=== PATIENT | male | born 1955 | race Caucasian/White ===

== ENCOUNTER 2018-06-07 03:32 | Inpatient (IN) | payer OTHER ==
[~2018-06-07] VITALS: Ht 180.3 cm; Wt 117.9 kg
[2018-06-07] VITALS (12 sets, daily range): BP systolic 106–121; BP diastolic 67–78
[~2018-06-07 03:32] MED LIST: ALEVE220 MG PO; AMLODIPINE BESY10 MG PO; CENTRUM SILVER1 EAC2 PO; HYDROCODON-ACE1 EAC7 PO; HYDROCODONE-APA1 TA1; LISINOPRIL-HCT1 EAC2; LISINOPRIL20 MG PO; OMEPRAZOLE20 M1; OMEPRAZOLE40 MG PO; ONDANSETRON HCL4 M2; TOPROL XL50 MG PO; [UNRECOGNIZED DRUG - OTHER] PO
--- NOTE | 2018-06-07 04:37 | NUR ---
ADMISSION NOTE: PT COMES IN TONIGHT COMPLAINING OF SHORTNESS OF AIR AND CHEST PAIN AT HOME. STATED THAT HE HAD BEEN THINKING HE WAS HAVING INDIGESTION AND NOW RELIZES THAT IT COULD BE HIS HEART. HE IS COOPERATIVE AND CALM AND ALERT AND ORIENTED X4. NO SKIN BREAKDOWN NOTED BY THIS RN. CARE PLAN INITIATED. DENIES CHEST PAIN OR ANY OTHER DISCOMFORT. HE IS ON 2 LITERS OF OXYGEN , AND HAS AN ELEVATED HEART AT TIMNE OF ADMISSION IN THE 140- 160'S. CARDIZEM GTT STARTED AT 0413. TITRATED ORDERED. HE IS COMFORTABLE AND AWAITING THE FUSE ASSEMBLER TO SEE HIM.
[2018-06-07] MEDS ORDERED: ASPIRIN325 PO (05:22)
[2018-06-07] MEDS ORDERED: GLUCOTROL5 MG PO (05:22)
[2018-06-07 07:51] LABS: CHOLESTEROL 184 mg/dL (<200); HDL CHOLESTEROL 29 mg/dL (>40); LDL CHOLESTEROL 119 mg/dL (<100); TC:HDL 6.3 Ratio (Not establshd); TRIGLYCERIDE 181 mg/dL (<150); VLDL 36 mg/dL (<40)
--- NOTE | 2018-06-07 09:44 | NUR ---
care of pt assumed this am @ 0700. pt resting quietly and comfortably in bed, pt denies cp, no n/v and no soa thus far today. pt on o2 @ 2lt nc for comfort as pt states he is a mouth breather when he sleeps. pt w/ a good appetite for food and fluid this am. pt voiding per urinal in bthrm w/ sba to ambulate. pt w/ a steady, balanced and coordinated gait. pt on a diltiazem gtt at this time @ 20mg/hr. medical records requested from [facility] per dr. chapa. pt w/ pending cardiac cath this am.
--- NOTE | 2018-06-07 12:13 | 2DMMODE ---
[facility] [address] [place] [address] 2 D/M-MODE ECHOCARDIOGRAM Name: SEGUNDO KWONG Room #: 356-P [facility] IN ..#: [id number] ������������� Admission: 06/07/18 ������������� Attend Phys: Jersey Jeong MD Discharge: ��� ������������� ��� Date of : 53 Date of Service: 06/07/18 1213 �� Report #: [id number] �������� ��������������������������������������������[id number] THIS REPORT FOR: //name// APPROVED REPORT Study performed: 06/07/2018 10:13:37 EXAM: Comprehensive 2D, Doppler, and color-flow Echocardiogram Patient Location: In-Patient Room #: 356 Status: stat BSA: 2.33 HR: 89 bpm BP: 113/74 mmHg Rhythm: Atrial Fibrillation Other Information Study Quality: Technically Limited Indications Aortic Valve Disease Diabetes Dyspnea Syncope Chest Pain Hypertension/HDD 2D Dimensions LVOT Diam: 18.91 (18-24mm) Aortic Valve AoV Peak Fernando.: 3.55 m/s AO Peak Gr.: 50.55 mmHg LVOT Max P.11 mmHg AO Mean Gr.: 31.43 mmHg LVOT Mean P.85 mmHg AO V2 Mean: 2.59 m/s LVOT Max V: 1.23 m/s AO V2 VTI: 69.21 cm LVOT Mean V: 0.92 m/s CHELSEA (VTI): 1.12 cm2 LVOT V1 VTI: 27.70 cm CHELSEA Vmax: 0.97 cm2 SV (LVOT): 77.72 mL Left Ventricle The left ventricle is normal size. There is normal LV segmental wall motion. Mild to moderate concentric left ventricular hypertrophy. Left ventricular systolic function is hyperdynamic. LVEF is >70%. [facility] [address] [place] [address] 2 D/M-MODE ECHOCARDIOGRAM Name: SEGUNDO KWONG Room #: 356- ADM IN .R.#: [id number] ������������� Admission: 06/07/18 ������������� Attend Phys: Jersey Jeong MD Discharge: ��� ������������� ��� Date of : 53 Date of Service: 06/07/18 1213 �� Report #: [id number] �������� ��������������������������������������������[id number] Right Ventricle The right ventricle is normal size. The right ventricular systolic function is normal. Atria The left atrium size is normal. The right atrium size is normal. Aortic Valve Aortic valve is calcified, probably bicuspid. No aortic regurgitation is present. Moderate to moderately severe aortic stenosis (maximum pressure gradient of 49 mmHg and mean pressure gradient of 30 mmHg). CHELSEA 1.0cm2 Mitral Valve The mitral valve is normal in structure. Tricuspid Valve The tricuspid valve is normal in structure. Pulmonic Valve Pulmonic valve is not well visualized. Great Vessels The aortic root is normal in size. Pericardium There is no pericardial effusion. <Conclusion> Abbreviated echocardiogram Left ventricular systolic function is hyperdynamic. Mild to moderate concentric left ventricular hypertrophy. LVEF is >70%. Aortic valve is calcified, probably bicuspid. Moderate to moderately severe aortic stenosis (maximum pressure gradient of 49 mmHg and mean pressure gradient of 30 mmHg). CHELSEA 1.0cm2 The mitral valve is normal in structure. There is no pericardial effusion. ��������������������������������������������� <ELECTRONICALLY SIGNED> ���������������������������������������� By: Beltran Rolon MD, FACC ��������������������������������������������� 06/07/18 121 12 12 Beltran Rolon MD, FACC /INF
--- NOTE | 2018-06-07 12:46 | NUR ---
Spoke with Dr. Rolon re: cardizem PO and cardizem drip. Stated he wants the PO cardizm given, one time order. Titrate Cardizem drip off to keep HR less than 100. Report called to CCU RN.
--- NOTE | 2018-06-07 13:08 | CATHLAB ---
[facility] [address] [facility] [address] [place] [address] INVASIVE PROCEDURE REPORT Name: SEGUNDO KWONG Room #: 356-P [facility] IN [facility].#: [id number] ������������� Admission: 06/07/18 ������������� Attend Phys: Jersey Jeong MD Discharge: ��� ������������� ��� Date of : 53 Date of Service: 06/07/18 1308 �� Report #: [id number] �������� ��������������������������������������������[id number] THIS REPORT FOR: //name// APPROVED REPORT Study performed: 06/07/2018 09:44:07 Patient Details Patient Status: In-Patient Room #: Indication Abnormal ECG, Non-STEMI , Atrial fibrillation Risk Factors Arterial HypertensionDysplipidemia , Hypertension, Diabetes Procedure Narrative The patient was brought electively to the Cardiac Catheterization Laboratory and was prepped and draped in a sterile manner. The Right Groin^ was infiltrated with 1% Lidocaine subcutaneous anesthesia. A 6Fr Independence sheath sheath was inserted into the RFA^. Coronary angiography was performed using coronary diagnostic catheters. The right coronary system was accessed and visualized with a JR4 catheter. The left coronary system was accessed and visualized with a JL5 catheter. An aortogram of the ascending aorta was performed. Closure device was deployed with a 6 Fr MYNXGRIP 6/7F #[id number]. The patient tolerated the procedure well and there were no complications associated with the procedure. There was no hematoma. Intraoperative Conscious Sedation Sedation start time: 10:28 Case end Time: 11:16 Fentanyl 50 mcg Versed 1.5 mg Fluoro Time: 5.83 minutes Dose: DAP 60174.6 cGycm2 1394.2 mGy Contrast Type and Amount: Omnipaque 230 ml Coronary Angiography The patient's coronary anatomy is right dominant. Diagnostic Cath Left Main Short, normal left main LAD 30-40% mid LAD stenosis just after the first diagonal branch. Not flow-limiting by FFR 0.94 [facility] [address] [place] [address] [place] [address] INVASIVE PROCEDURE REPORT Name: SEGUNDO KWONG MOSELLE Room #: 356-P ADM IN M.R.#: [id number] ������������� Admission: 06/07/18 ������������� Attend Phys: Jersey Jeong MD Discharge: ��� ������������� ��� Date of : 53 Date of Service: 06/07/18 1308 �� Report #: [id number] �������� ��������������������������������������������[id number] Diagonal 1 Large first diagonal branch with minimal proximal plaquing Circumflex Circumflex was large and comprised of a large single marginal branch, angiographically normal Right Coronary Very large, dominant right coronary with mild 10-20% proximal mid and distal vessel plaquing R PDA Large posterior descending branch 20-30% proximal plaquing RPLV Moderately large posterior lateral branch, mild plaquing Left Ventriculography Left Ventriculography was not performed. Supravalvular aortography demonstrated a calcified and possibly bicuspid aortic valve. Mild aortic insufficiency. The proximal aorta. Normal in caliber. No dissection. Hemodynamics The aortic pressure is 106/73 mmHg with a mean of 88 mmHg. PCI Technique Lesion Percutaneous coronary intervention was performed on the mid left anterior descending artery segment. The lesion stenosis prior to intervention was 40% with STEVEN 3 flow. A LAUNCHER 6FR JL5 #[id number] Guide Catheter was used to engage the ostium. A Aeris Pressure Wire 175 cm [id number] Interventional Guidewire was used to cross the lesion. COMMENTS Aeris pressure wire was introduced across proximal left anterior descending artery. Pre FFR=.94 Post FFR without adenosine=.94 Conclusion 1. Calcific aortic stenosis, possibly bicuspid valve. Mildly insufficient 2. Normal left main 3. 30-40% mid LAD stenosis not flow-limiting by FFR (0.94) 4. Large, nondominant circumflex, angiographically normal 5. Dominant right coronary, mild scattered plaquing [facility] [address] [place] [address] INVASIVE PROCEDURE REPORT Name: SEGUNDO KWONG Room #: 356-P [facility] IN [facility]#: [id number] ������������� Admission: 06/07/18 ������������� Attend Phys: Jersey Jeong MD Discharge: ��� ������������� ��� Date of : 53 Date of Service: 06/07/18 1308 �� Report #: [id number] �������� ��������������������������������������������[id number] Recommendations [facility] ��������������������������������������������� <ELECTRONICALLY SIGNED> ���������������������������������������� By: Beltran Rolon MD, [facility] ��������������������������������������������� 06/07/18 1308 07 130 Beltran Rolon MD, FACC /INF
--- NOTE | 2018-06-07 17:16 | EKG ---
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: CHANNING : 1955 Requested By: Magui Whaley Order Number: [id number] MD: Beltran Rolon Measurements Intervals [place] Rate: 99 P: SC: QRS: 60 QRSD: 140 T: 200 QT: 371 QTc: 477 Interpretive Statements Atrial fibrillation Right bundle branch block Abnormal T, consider ischemia, lateral leads Baseline wander in lead(s) V5,V6 Compared to ECG 04/17/2015 07:06:32 Atrial fibrillation has replaced sinus rhythm Electronically Signed On 06-07-2018 17:16:52 CDT by Beltran Rolon [email or web address] ��������������������������������������������� <ELECTRONICALLY SIGNED> ���������������������������������������� By: Beltran Rolon MD, FACC ��������������������������������������������� 06/07/18 1716 0936 0936 Beltran Rolon MD, [facility] /EPI
--- NOTE | 2018-06-07 17:20 | NUR ---
PT ARRIVED TO UNIT AT APPROX 1330 FROM SWATCH FOLDER BY SWATCH FOLDER STAFF ACCOMPANIED BY FRIEND. PT ALERT AND ORIENTED, NO C/O PAIN, DENIES CHEST PAIN. VSS. RT GROIN SITE CDI, NO HEMATOMA. FLUIDS STARTED, DILT GTT CONTINUES. TELE PUT ON, ADMIT STRIP PRINTED AND DOCUMENTED. PT DENIES CONCERNS AT THIS TIME. WILL CONTINUE TO MONITOR AND FOLLOW POC.
--- NOTE | 2018-06-07 17:40 | NUR ---
PT CONTINUES TO BE ALERT AND ORIENTED, DILT GTT TITRATING DOWN. PT SR ON MONITOR. PT CONTINUES TO DENY PAIN, NO CHEST PAIN. NO S/SX OF CARDIAC OR RESP DISTRESS NOTED. RT GROIN SITE CONTINUES TO BE CDI, NO HEMATOMA. POST CATH VITALS FLOW SHEET IN CHART. DENIES CONCERNS AT THIS TIME. WILL CONTINUE TO MONITOR AND FOLLOW POC.
--- NOTE | 2018-06-07 17:49 | NUR ---
INITIAL ASSESSMENT: SW reviewed chart and spoke with attending physician. Pt was transferred to [facility] from [facility] due to afib with RVR. Pt had cardiac cath earlier today and transferred to CCU from . SW met with pt and family at bedside. introduced role of SW. Pt is alert/orientated x 4. Pt reports he lives at home with his son. Prior to admission, pt was independent with ADLs. No use of DME. No hx of HH services or SNF/Rehab placement. Pt denies having any discharge needs. Anticipate discharge home tomorrow. Pt's family will provide transportation home. SW is following to assist should needs arise.
[2018-06-08 01:19] VITALS: BP 116/73
[2018-06-08 03:32] VITALS: BP 148/92
[2018-06-08 03:54] LABS: CREATININE 0.8 mg/dL (0.7-1.3); POTASSIUM 3.9 mmol/L (3.5-5.1)
[2018-06-08 04:40] LABS: HEMATOCRIT 43.2 % (42.0-52.0); HEMOGLOBIN 14.8 gm/dL (14.0-18.0); MCH 31.6 pg (26.0-34.0); MCHC 34.3 g/dL (28.0-37.0); RBC 4.69 mil/uL (4.50-6.00); RDW 14.6 % (10.5-14.5); WBC 5.3 thou/uL (4.0-11.0)
[2018-06-08 05:58] VITALS: BP 148/92
--- NOTE | 2018-06-08 07:27 | NUR ---
ASSESSMENT DOCUMENTED.PT RESTING IN NO ACUTE DISTRESS.A/OX4.VSS.S/P CARDIAC CORY W/O INTERVENTIONS.RIGHT GROIN W/O HEMATOMA,DRSNG CDI.PT TO POSSIBLY DISCHARGE TODAY TO HOME.WILL CONT TO MONITOR PER POC.
[2018-06-08] MEDS ORDERED: ELIQUIS5 MG PO (07:59)
[2018-06-08] MEDS ORDERED: CARDIZEM CD120 MG PO (07:59)
[2018-06-08] MEDS ORDERED: ATORVASTATIN CA40 MG PO (07:59)
[2018-06-08 08:18] VITALS: BP 136/86
[2018-06-08 10:16] VITALS: BP 136/86
--- NOTE | 2018-06-08 12:16 | NUR ---
DISCHARGE NOTE: SW reviewed chart and spoke with nursing and attending physician. Pt is medically stable for discharge home today. No SW discharge needs identified at this time. Pt's family to provide transportation home. No additional SW needs identified at this time, but is available to assist should needs arise.
--- NOTE | 2018-06-08 17:59 | EKG ---
[place] [address] [facility] [employer] [place] [address] ELECTROCARDIOGRAM REPORT Name: SEGUNDO KWONG Room #: 210-P [facility] IN M.R.#: [id number] ������������������ Admission: 06/07/18 ������������������ Attend Phys: Jersey Jeong MD Discharge: 06/08/18 ������������������ Date of : 53 Report #: [id number] ����������������������������������������������������������������� [id number] THIS REPORT FOR: //name// [facility] Test Date: 2018-06-08 Test Time: 07:10:57 Pat Name: SEGUNDO KWONG Department: Room: 210 P Gender: M Physical Therapy Aide: CHANNING : 1955 Requested By: Beltran Rolon Order Number: [id number] MD: Beltran Rolon Measurements Intervals [place] Rate: 73 P: 6 MD: 144 QRS: 51 QRSD: 141 T: 192 QT: 433 QTc: 478 Interpretive Statements Sinus rhythm Right bundle branch block Abnrm T, consider ischemia, anterolateral lds Baseline wander in lead(s) V5 Compared to ECG 06/07/2018 09:36:21 Atrial fibrillation no longer present Electronically Signed On 06-08-2018 17:59:20 CDT by Beltran Rolon [email or web address] ��������������������������������������������� <ELECTRONICALLY SIGNED> ���������������������������������������� By: Beltran Rolon MD, [facility] ��������������������������������������������� 06/08/18 1759 0710 0710 Beltran Rolon MD, [facility] /EPI
== END 2018-06-08 11:15 | disposition home or self-care (01) | DRG 251 ==
LOC: 3W 03:32 → 2N 13:25 → ENTRNSPT 06-08 10:42 → EDTRNSPTSTS 06-08 10:44 → 2N 06-08 11:15
PROVIDERS: Nurse Practitioner Acute Care; ADMIT Hospitalist
PROC: 4A023N7 Measurement of Cardiac Sampling and Pressure, Left Heart, Percutaneous Approach (ICD-10-PCS; principal; 2018-06-07)
PROC: B2111ZZ Fluoroscopy of Multiple Coronary Arteries using Low Osmolar Contrast (ICD-10-PCS; principal; 2018-06-07)
PROC: B4101ZZ Fluoroscopy of Abdominal Aorta using Low Osmolar Contrast (ICD-10-PCS; principal; 2018-06-07)
PROC: 02703ZZ Dilation of Coronary Artery, One Artery, Percutaneous Approach (ICD-10-PCS; 2018-06-07)
DX: I21.A1 Myocardial infarction type 2 (principal); D68.59 Other primary thrombophilia; I48.0 Paroxysmal atrial fibrillation; K08.409 Partial loss of teeth, unspecified cause, unspecified class; I10 Essential (primary) hypertension; K21.9 Gastro-esophageal reflux disease without esophagitis; I65.22 Occlusion and stenosis of left carotid artery; I71.4 Abdominal aortic aneurysm, without rupture; K58.9 Irritable bowel syndrome, unspecified; I35.1 Nonrheumatic aortic (valve) insufficiency; Z88.8 Allergy status to other drugs, medicaments and biological substances; Z90.49 Acquired absence of other specified parts of digestive tract; Z87.891 Personal history of nicotine dependence; Z87.442 Personal history of urinary calculi; Z79.82 Long term (current) use of aspirin; Z79.899 Other long term (current) drug therapy; Z98.49 Cataract extraction status, unspecified eye; Z82.49 Family history of ischemic heart disease and other diseases of the circulatory system; Z82.3 Family history of stroke; Z28.89 Immunization not carried out for other reason
CPT/HCPCS: 10081

== ENCOUNTER 2018-07-19 20:01 | Inpatient (IN) | payer OTHER ==
[~2018-07-19] VITALS: Ht 180.3 cm; Wt 117.5 kg
--- NOTE | ~2018-07-19 | HC ---
[facility] [address] CONSULTATION Name: SEGUNDO KWONG Room #: 354-P ADM IN M.R.#: [id number] Admission: 07/19/18 ������������������ Attend Phys: Lamont Mcarthur Discharge: ������������������ Date of : 53 Report #: [id number] THIS REPORT FOR: //name// CC: FAM unknown Lamont Mcarthur DATE OF SERVICE: 07/20/2018 HISTORY OF PRESENT ILLNESS: This is a 63-year-old male patient who was evaluated by me for an episode of left-sided weakness and numbness. It was a transient episode which came spontaneously and then resolved spontaneously. There was some question of a generalized headache in this patient. He indicates that he had a carotid Doppler in the local hospitals and that carotid Doppler initially showed 60% stenosis, then it showed a complete occlusion. Then, he had an MRA and he has had that demonstrated a complete occlusion. He said it was fair, but I do not find any record here of the MRI. He was admitted here in earlier and that was for atrial fibrillation. He is on anticoagulation for that. REVIEW OF SYSTEMS: Indicate history of occlusion of right carotid. Some of the records indicate that it is left carotid, which is occluded. We need to confirm that, we need to get those records and I will talk to Dr. Mcarthur. He does have a history of atrial fibrillation. He does have hypertension. His blood pressure fluctuates. He does not have a blood pressure cuff at home. He had a myocardial problems in the past and he has a bicuspid aortic valve. He had a prior history of hypertension, kidney stones, tumor of the left eye. Otherwise, he is pretty healthy. His 14-point review of systems was relevant for the above thing. PAST MEDICAL HISTORY: Positive for right carotid stenosis, but I need to confirm that it was occluded and it was on the right side. FAMILY HISTORY: Negative for any early age stroke. SOCIAL HISTORY: He has a son who was here and he provided part of the history. PHYSICAL EXAMINATION: Indicate he is alert, responsive, able to follow simple and complex command. His speech, concentration, fund of knowledge and memory is at his baseline. Cranial nerve examination 2-12 is mostly noncontributory. Strength, sensation, reflexes and tone is symmetrical. There is some murmur in the heart. No respiratory difficulty was noticed. His blood pressure is 115/64, temperature is 97.4. LABORATORY DATA: His WBC count is 5.3. GFR is 75. IMPRESSION: We need to clarify his situation and confirm that he has a right [facility] [address] [place] [address] CONSULTATION Name: SEGUNDO KWONG Room #: 354-P [facility] IN M.R.#: [id number] Admission: 07/19/18 ������������������ Attend Phys: Lamont Mcarthur Discharge: ������������������ Date of : 53 Report #: [id number] carotid stenosis and the vessel is fully occluded. If that is the case, then a surgical intervention cannot be done and the emphasis should be to make sure he does not have any hypotension, which caused the collapse of the collateral. I would like to do an MRI to make sure he did not have any stroke because of cross embolization. If the right carotid is occluded and we need to see what the situation is on the left carotid. I cannot find any imaging study. I will call Dr. Mcarthur to get some more information to see where we can find the studies and await evaluation by Dr. Callahan. I discussed all of it with the patient in detail and review of his record. Time spent 50 minutes and majority of that counseling the patient and coordinating his care. ��������������������������������������������� ���������������������������������������� By: ��������������������������������������������� 1040 0210 Chris Louis MD /nt
[~2018-07-19 20:01] MED LIST changes: +ASPIRIN325 PO; +ATORVASTATIN CA40 MG PO; +CARDIZEM CD120 MG PO; +ELIQUIS5 MG PO; +GLUCOTROL5 MG PO
[2018-07-19 20:55] VITALS: BP 125/83
[2018-07-19] MEDS ORDERED: SORINE 80 MG TA80 M1 PO (21:18)
[2018-07-19] MEDS ORDERED: VIAGRA50 MG PO (21:22)
[2018-07-20 00:23] VITALS: BP 116/72
[2018-07-20 03:45] VITALS: BP 131/85
[2018-07-20 05:29] LABS: HEMATOCRIT 45.6 % (42.0-52.0); HEMOGLOBIN 15.6 gm/dL (14.0-18.0); MCH 31.2 pg (26.0-34.0); MCHC 34.1 g/dL (28.0-37.0); MCV 91.3 fL (80.0-100.0); RBC 4.99 mil/uL (4.50-6.00); RDW 14.2 % (10.5-14.5); WBC 5.3 thou/uL (4.0-11.0)
[2018-07-20 05:42] LABS: MAGNESIUM 1.9 mg/dL (1.8-2.4); POTASSIUM 3.6 mmol/L (3.5-5.1)
[2018-07-20 07:47] VITALS: BP 115/65
[2018-07-20 11:28] VITALS: BP 126/91
[2018-07-20 15:28] VITALS: BP 116/76
[2018-07-20 19:31] VITALS: BP 120/71
[2018-07-21 04:13] VITALS: BP 113/52
[2018-07-21 07:39] VITALS: BP 125/89
[2018-07-21 11:37] VITALS: BP 133/81
[2018-07-21 15:57] VITALS: BP 144/89
[2018-07-21 19:30] VITALS: BP 132/82
[2018-07-22 04:05] VITALS: BP 149/81
[2018-07-22 07:22] VITALS: BP 140/97
[2018-07-22 08:00] VITALS: BP 140/97
--- NOTE | 2018-07-22 08:37 | EEG ---
[facility] [place] [address] ELECTROENCEPHALOGRAM Name: SEGUNDO KWONG Room #: 354-P [facility] IN M.R.#: [id number] ������������������ Admission: 07/19/18 ������������������ Attend Phys: Lamont Forte Discharge: ������������������ Date of : 53 Report #: [id number] ����������������������������������������������������������������� [id number] THIS REPORT FOR: //name// CC: FAM unknown Lamont Mcarthur DATE OF SERVICE: 07/21/2018 HISTORY: The patient is a 63-year-old male who had an episode of left-sided weakness, numbness, tingling and cramping of the left hand. An EEG is requested for further evaluation. DESCRIPTION: The awake record consists of symmetric moderate amplitude 7.5-8 cycles per second posterior dominant rhythm, which attenuates with eye opening. Stage 1 sleep was characterized by attenuation of the background record. Photic stimulation was not activating. No focal abnormalities or epileptiform discharges were noted. IMPRESSION: This is a normal adult awake to stage 1 sleep record. No focal abnormalities or epileptiform discharges were noted. ���������������������������������������� <ELECTRONICALLY SIGNED> ���������������������������������������� By: Bina Hines DO ��������������������������������������������� 07/22/18 0837 1718 1948 Bina Hines DO /nt
[2018-07-22 09:20] VITALS: BP 140/97
[2018-07-22 09:28] VITALS: BP 140/97
--- NOTE | 2018-07-23 12:06 | HC ---
[facility] [place] [address] CONSULTATION Name: SEGUNDO KWONG Room #: 354-P [facility] IN M.R.#: [id number] Admission: 07/19/18 ������������������ Attend Phys: Lamont Mcarthur Discharge: 07/22/18 ������������������ Date of : 53 Report #: [id number] THIS REPORT FOR: //name// CC: FAM unknown Lamont Mcarthur DATE OF SERVICE: 07/20/2018 We were asked to see the patient in consultation. HISTORY OF PRESENT ILLNESS: The patient is a 63-year-old admitted and transferred to this facility from [facility]. The patient describes a transient ischemic attack characterized by 5 minutes or so of left arm and left leg weakness and numbness. We note that the patient had an MR angiogram of the neck that shows a 100% occlusion of the right internal carotid. In discussion with the patient, he states that this is not a new finding. Rather, it was discovered that he had a right carotid total occlusion in March. Previously, Carotid duplexes have demonstrated bilateral 60% stenoses. We note that the patient was inpatient at this facility approximately 40 days ago. At that time, the patient had cardiac catheterization and cardiac echo. The patient was found to have inpk-dn-hpqyuxey aortic stenosis with a bicuspid valve and mild coronary artery disease that was appropriate for medical management. The patient has a history of paroxysmal atrial fibrillation and has been taking Eliquis for the last 40 days. It appears that the admission to this facility 40 days ago was prompted by a heart rate of 180 and underlying arrhythmia. OTHER PAST MEDICAL HISTORY: Includes hypertension, hyperlipidemia, diabetes mellitus. ALLERGIES: THE PATIENT CLAIMS TO BE ALLERGIC TO METFORMIN AND SERTRALINE. MEDICATIONS: At home include omeprazole, glipizide, aspirin, sotalol, sildenafil, lisinopril. PAST SURGICAL HISTORY: Includes orthopedic surgery to knees, skin graft to leg, appendectomy, tonsillectomy. FAMILY HISTORY: Significant for heart disease, cancer, and stroke. TOBACCO USE: Former smoker, claims to have approximately 85-ndzg-gqmc history, but had quit at least 15 years ago. [facility] [address] [place] [address] CONSULTATION Name: SEGUNDO KWONG REI Room #: 354-P [facility] IN M.R.#: [id number] Admission: 07/19/18 ������������������ Attend Phys: Lamont Mcarthur Discharge: 07/22/18 ������������������ Date of : 53 Report #: [id number] SOCIAL HISTORY: The patient is . He is retired from working with [employer], [place], claims to be in good health, otherwise. REVIEW OF SYSTEMS: CONSTITUTIONAL: No major weight changes, no fevers. HEENT: No headache, no vision problems. No new hearing problems. RESPIRATORY: Denies new shortness of breath. CARDIAC: Denies chest pain. As noted, history of palpitations with fast heart rate approximately one month ago. GASTROINTESTINAL: No nausea, vomiting blood. GENITOURINARY: No urgency, frequency blood. MUSCULOSKELETAL: No important arthritic problems currently. NEUROLOGIC: As mentioned in HPI, transient numbness in left side and weakness, left side. No lasting neurologic deficit. PSYCHIATRIC: No depression, no anxiety. ENDOCRINE: No tremor. No goiter. PHYSICAL EXAMINATION: VITAL SIGNS: Temperature 36.9, heart rate 72, respiratory rate 16, blood pressure 116/76, O2 sat 95 on room air. HEENT: No scleral icterus, no arcus. Pupils are round, equal. Gaze conjugate. No obvious oropharyngeal problems. NECK: No mass, no bruit. CHEST: Clear to auscultation. The patient has increased AP diameter to chest. CARDIAC: Regular rhythm with grade 2 systolic murmur in the aortic area. ABDOMEN: Protuberant, soft, no mass, no tenderness. EXTREMITIES: No clubbing, cyanosis or edema. VASCULAR: No obvious lower extremity varicosities, 1+ distal pulses bilaterally, 2+ popliteal pulses bilaterally. PSYCHIATRIC: Shows insight into problem and answers questions appropriately and this is a pleasant fellow. ASSESSMENT AND PLAN: The patient has history of mild coronary artery disease, xude-cm-ugpyjhta aortic stenosis and a known occluded right internal carotid. The patient has a transient ischemic attack that appears to be related to the right brain. It is not clear how this happened with the total occlusion, but there is no indication for carotid surgery for total occlusion. It might be nice to better evaluate the left side as the current MRA describes motion artifact, perhaps a repeat duplex would be a good place to start. As far as the cardiologic picture, this does not appear to be a symptom related to his coronary artery disease or his valve, but I will defer to Cardiology on that. [address] [address] CONSULTATION Name: SEGUNDO KWONG Room #: 354-P [facility] IN M.R.#: [id number] Admission: 07/19/18 ������������������ Attend Phys: Lamont Mcarthur Discharge: 07/22/18 ������������������ Date of : 53 Report #: [id number] Thank you for the consult. ��������������������������������������������� <ELECTRONICALLY SIGNED> ���������������������������������������� By: Bobby Callahan MD ��������������������������������������������� 07/23/18 1206 1618 1105 Bobby Calalhan MD /nt
== END 2018-07-22 12:58 | disposition home or self-care (01) | DRG 69 ==
LOC: 3W 20:01
PROVIDERS: Nurse Practitioner Acute Care; ADMIT Hospitalist
DX: G45.9 Transient cerebral ischemic attack, unspecified (principal); I10 Essential (primary) hypertension; E78.5 Hyperlipidemia, unspecified; E11.9 Type 2 diabetes mellitus without complications; I25.10 Atherosclerotic heart disease of native coronary artery without angina pectoris; K08.409 Partial loss of teeth, unspecified cause, unspecified class; K21.9 Gastro-esophageal reflux disease without esophagitis; F32.9 Major depressive disorder, single episode, unspecified; I48.0 Paroxysmal atrial fibrillation; I35.0 Nonrheumatic aortic (valve) stenosis; Z90.49 Acquired absence of other specified parts of digestive tract; Z82.49 Family history of ischemic heart disease and other diseases of the circulatory system; Z86.73 Personal history of transient ischemic attack (TIA), and cerebral infarction without residual deficits; Z87.891 Personal history of nicotine dependence; Z88.8 Allergy status to other drugs, medicaments and biological substances; Z98.42 Cataract extraction status, left eye; Z98.41 Cataract extraction status, right eye; Z87.442 Personal history of urinary calculi; Z82.3 Family history of stroke; Z80.0 Family history of malignant neoplasm of digestive organs; Z79.82 Long term (current) use of aspirin; Z79.899 Other long term (current) drug therapy
CPT/HCPCS: 10779; 10879

== ENCOUNTER 2018-11-01 20:07 | Inpatient (IN) | payer OTHER ==
[~2018-11-01] VITALS: Ht 180.3 cm; Wt 113.9 kg
[~2018-11-01 20:07] MED LIST changes: +SORINE 80 MG TA80 M1 PO; +VIAGRA50 MG PO
[2018-11-01 21:15] VITALS: BP 121/70
[2018-11-01] MEDS ORDERED: NORVASC5 MG PO (21:36)
[2018-11-02 00:10] VITALS: BP 121/80
[2018-11-02 05:00] VITALS: BP 127/77
[2018-11-02 05:50] LABS: HEMATOCRIT 45.6 % (42.0-52.0); HEMOGLOBIN 15.6 gm/dL (14.0-18.0); MCH 30.9 pg (26.0-34.0); MCHC 34.1 g/dL (28.0-37.0); MCV 90.6 fL (80.0-100.0); RBC 5.03 mil/uL (4.50-6.00); RDW 14.5 % (10.5-14.5); WBC 6.3 thou/uL (4.0-11.0)
[2018-11-02 05:58] LABS: CALCIUM 8.5 mg/dL (8.5-10.1); CREATININE 0.7 mg/dL (0.7-1.3); POTASSIUM 4.1 mmol/L (3.5-5.1)
[2018-11-02 09:11] VITALS: BP 108/81
[2018-11-02 12:43] VITALS: BP 111/66
[2018-11-02 18:26] VITALS: BP 112/69
[2018-11-02 19:54] VITALS: BP 120/75
[2018-11-03 05:02] VITALS: BP 127/81
[2018-11-03 08:47] VITALS: BP 117/85
[2018-11-03 13:36] VITALS: BP 136/73
[2018-11-03 18:02] VITALS: BP 107/64
--- NOTE | 2018-11-03 18:03 | EKG ---
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 11/03/18 1803 0 0 Beltran Rolon MD, [facility] /EPI
--- NOTE | 2018-11-03 18:11 | EKG ---
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 : 1955 Requested By: Beltran Rolon Order Number: [id number] MD: Beltran Rolon Measurements Intervals [place] Rate: 70 P: 45 MI: 148 QRS: 44 QRSD: 144 T: 159 QT: 446 QTc: 482 Interpretive Statements Sinus rhythm Right bundle branch block Abnormal T, consider ischemia, lateral leads Compared to ECG 06/08/2018 07:10:57 Sinus rhythm has replaced atrial fibrillation Electronically Signed On 11-03-2018 18:11:15 CDT by Beltran Rolon [email or web address] <ELECTRONICALLY SIGNED> By: Beltran Rolon MD, [facility] 11/03/18 1811 0739 0739 Beltran Rolon MD, [facility] /EPI
[2018-11-03 20:21] VITALS: BP 110/75
[2018-11-04 04:43] VITALS: BP 125/76
[2018-11-04 08:06] VITALS: BP 127/82
--- NOTE | 2018-11-04 10:43 | EKG ---
[place] [address] [facility] [place] [address] ELECTROCARDIOGRAM REPORT Name: SEGUNDO KWONG Room #: 212-P ADM IN M.R.#: [id number] Admission: 11/01/18 Attend Phys: Joseph Ivy MD Discharge: Date of : 53 Report #: [id number] THIS REPORT FOR: //name// 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 : 1955 Requested By: Beltran Rolon Order Number: [id number] MD: Beltran Rolon Measurements Intervals [place] Rate: 70 P: 40 NV: 148 QRS: 46 QRSD: 143 T: 177 QT: 453 QTc: 489 Interpretive Statements Sinus rhythm Right bundle branch block Abnrm T, consider ischemia, lateral lds Compared to ECG 11/03/2018 07:39:23 No significant change was found Electronically Signed On 11-04-2018 10:43:35 CDT by Beltran Rolon [email or web address] <ELECTRONICALLY SIGNED> By: Beltran Rolon MD, [facility] 11/04/18 1043 0657 0657 Beltran Rolon MD, [facility] /EPI
[2018-11-04] MEDS ORDERED: SORINE 80 MG TA80 M1 PO (12:09)
[2018-11-04 12:23] VITALS: BP 127/82
== END 2018-11-04 12:58 | disposition home or self-care (01) | DRG 281 ==
LOC: 2N 20:07
PROVIDERS: Nurse Practitioner Family; ADMIT Hospitalist
DX: I21.4 Non-ST elevation (NSTEMI) myocardial infarction (principal); D68.59 Other primary thrombophilia; I48.0 Paroxysmal atrial fibrillation; E11.9 Type 2 diabetes mellitus without complications; I10 Essential (primary) hypertension; K21.9 Gastro-esophageal reflux disease without esophagitis; E78.5 Hyperlipidemia, unspecified; F32.9 Major depressive disorder, single episode, unspecified; I65.23 Occlusion and stenosis of bilateral carotid arteries; I35.0 Nonrheumatic aortic (valve) stenosis; K58.9 Irritable bowel syndrome, unspecified; I25.10 Atherosclerotic heart disease of native coronary artery without angina pectoris; N40.0 Benign prostatic hyperplasia without lower urinary tract symptoms; Z87.442 Personal history of urinary calculi; Z90.49 Acquired absence of other specified parts of digestive tract; Z98.42 Cataract extraction status, left eye; Z87.891 Personal history of nicotine dependence; Z98.41 Cataract extraction status, right eye; Z79.01 Long term (current) use of anticoagulants; Z79.82 Long term (current) use of aspirin; Z79.899 Other long term (current) drug therapy; Z88.8 Allergy status to other drugs, medicaments and biological substances; Z82.49 Family history of ischemic heart disease and other diseases of the circulatory system; Z80.0 Family history of malignant neoplasm of digestive organs; Z82.3 Family history of stroke
CPT/HCPCS: 10081